=== PATIENT | female | born 1990 | race Caucasian/White ===

== ENCOUNTER 2017-09-04 14:54 | Inpatient (IN) | payer OTHER ==
[2017-09-04 15:29] VITALS: BMI 19.5
--- NOTE | 2017-09-04 20:09 | HP ---
COWS - Scale Resting Pulse: 1= [place] 81-100 Sweatin=Flushed/Facial Moisture Restless Observation: 5= Unable to Sit Still Pupil Size: 0= Normal to Room Light Bone or Joint Aches: 4=Acute Joint/Muscle Pain Runny Nose/ Eye Tearin= Runny Nose/Eyes GI Upset > 30mins: 3= Vomiting/Diarrhea Tremor Observation: 2= Slight Tremor Visible Yawning Observation: 1= 1-2x During Session Anxiety or Irritability: 2=Irritable/Anxious Goose Flesh Skin: 0=Smooth Skin COWS Score: 22 CIWA Score - CIWA Score Nausea/Vomitin Muscle Tremors: 3 Anxiety: 4-Mod. Anxious/Guarded Agitation: 4-Moderately Restless Paroxysmal Sweats: 3 Orientation: 3-Disoriented Date>2 days Tacttile Disturbances: 3-Moderate Itch/Numb/Burn Auditory Disturbances: 0-None Visual Disturbances: 0-None Headache: 0-None Present CIWA-Ar Total Score: 22 Admission ROS S - HPI Chief Complaint: C/O WITHDRAWAL SX'S. SEEKING DETOX TXMENT Allergies/Adverse Reactions: Allergies Allergy/AdvReac Type Severity Reaction Status Date / Time No Known Allergies Allergy Verified 09/04/17 20:05 History of Present Illness: 27 Y.O FEMALE WITH A LONG HX/O POLYSUBSTANCE ABUSE HERE FOR DETOX FROM HEROIN, CRACK/COCAINE, XANAX. CLIENT REPORTS THIS IS HER FIRST INPATIENT TXMENT. SELF REFERRED. DENIES LEGALS. LONGEST CLEAN TIME 3 YEARS SELF SUSTAINED. DENIES PREVIOUS HX/O OVERDOSE, SI/HI, AVH. Exam Limitations: No Limitations - Ebola screening Have you traveled outside of the country in the last 21 days: No (N) Have you had contact with anyone from an Ebola affected area: No Have you been sick,other than usual withdrawal symptoms: No Do you have a fever: No - Review of Systems Constitutional: Chills, Loss of Appetite, Malaise, Night Sweats, Changes in sleep, Unintentional Wgt. Loss EENT: reports: Nose Congestion (RUNNY NOSE), Dental Problems (DENTAL CARIES) Respiratory: reports: No Symptoms reported Cardiac: reports: No Symptoms Reported GI: reports: Poor Appetite, Poor Fluid Intake, Vomiting : reports: No Symptoms Reported Musculoskeletal: reports: Back Pain (CHRONIC), Neck Pain (CHRONIC) Integumentary: reports: Other (FOMICATION TO TRUNK OF BODY) Neuro: reports: No Symptoms reported Endocrine: reports: No Symptoms Reported Hematology: reports: No Symptoms Reported Psychiatric: reports: Anxious, Depressed Other Systems: Reviewed and Negative Patient History - Patient Medical History Hx Anemia: Yes Hx Asthma: No Hx Chronic Obstructive Pulmonary Disease (COPD): No Hx Cancer: No Hx Cardiac Disorders: No Hx Congestive Heart Failure: No Hx Hypertension: No Hx Hypercholesterolemia: No Hx Pacemaker: No HX Cerebrovascular Accident: No Hx Seizures: No Hx Dementia: No Hx Diabetes: No Hx Gastrointestinal Disorders: No Hx Liver Disease: No Hx Genitourinary Disorders: No Hx Sexually Transmitted Disorders: No Hx Renal Disease (ESRD): No Hx Thyroid Disease: No Hx Human Immunodeficiency Virus (HIV): No Hx Hepatitis C: No Hx Depression: Yes Hx Suicide Attempt: No Hx Bipolar Disorder: No Hx Schizophrenia: No Other Medical History: ANXIETY, ADHD, PTSD - Patient Surgical History Past Surgical History: No - PPD History Previous Implant?: Yes Documented Results: Negative w/o proof Implanted On Prior [facility] Admission?: No PPD to be Administered?: Yes - Reproductive History Patient is a Female of Child Bearing Age (11 -55 yrs old): Yes LMP comment: LMP OVER A YEAR AGO DUE TO DRUG USE Patient : No (NEG [facility] [place]) - Smoking Cessation Smoking history: Current every day smoker Have you smoked in the past 12 months: Yes Aproximately how many cigarettes per day: 20 Cigars Per Day: 0 Hx Chewing Tobacco Use: No Initiated information on smoking cessation: Yes 'Breaking Loose' booklet given: 09/04/17 - Substance & Tx. History Hx Alcohol Use: No Hx Substance Use: Yes Substance Use Type: Cocaine, Heroin, Tranquilizers (XANAX) Hx Substance Use Treatment: Yes (OUTPATIENT- [facility]) - Substances Abused Alprazolam (Xanax) Route: Oral Frequency: Daily Amount used: 1MG Age of first use: 18 Date of Last Use: 09/04/17 Cocaine Route: Injection Frequency: 1-2 times per week Amount used: 1 GRAM Age of first use: 16 Date of Last Use: 09/04/17 Crack Route: Smoking Frequency: Daily Amount used: 1 GRAM Age of first use: 16 Date of Last Use: 09/04/17 HEROIN Route: Injection Frequency: Daily Amount used: 20 BAGS Age of first use: 23 Date of Last Use: 09/04/17 Family Disease History - Family Disease History Family Disease History: Other: Father (ALCOHOLIC), Mother (RECOVERING ADDICT) Admission Physical Exam [facility] - Vital Signs Vital Signs: Vital Signs - 24 hr 09/04/17 15:22 Temperature 97.4 F L Pulse Rate 85 Respiratory 18 Rate Blood Pressure 113/75 - Physical General Appearance: Yes: Appropriately Dressed, Mild Distress, Irritable, Anxious HEENTM: Yes: EOMI, Normocephalic, Normal Voice, PATO, Pharynx Normal Respiratory: Yes: Chest Non-Tender, Lungs Clear, Normal Breath Sounds, No Respiratory Distress, No Accessory Muscle Use Neck: Yes: No masses,lesions,Nodules, Supple, Trachea in good position Breast: Yes: Breast Exam Deferred Cardiology: Yes: Regular Rhythm, Regular Rate, S1, S2 Abdominal: Yes: Normal Bowel Sounds, Flat, Soft, Tenderness (LLQ) Genitourinary: Yes: Within Normal Limits Back: Yes: Normal Inspection Musculoskeletal: Yes: full range of Motion, Gait Steady Extremities: Yes: Normal Capillary Refill, Normal Range of Motion, Non-Tender, Tremors (FELT) Neurological: Yes: Alert, Motor Strength 5/5, Confused (ABOUT DATE) Integumentary: Yes: Normal Color, Dry, Warm, Track Patricio (BUE), Other ( FORMICATION AND SCARRING NOTED TO TRUNK OF BODY) Lymphatic: Yes: Within Normal Limits Cleared for Admission [facility] - Detox or Rehab [facility] Level of Care: Medically Managed Detox Regimen/Protocol: Methadone/Valium Claeared for Rehab Admission: No [facility] Breath Alcohol Content Breath Alcohol Content: 0 Urine Pregancy Test - Result Urine Test Results: Negative- NO Line Present Urine Drug Screen - Results Drug Screen Negative: No Urine Drug Screen Results: DANA-Cocaine, OPI-Opiates, BZO-Benzodiazepines, OXY- Oxycodone
[2017-09-04] MEDS ORDERED: guaiFENesin/D-METHORPHAN HB 10 ML UNIT-DOSE CUPS PO PRN (20:30)
[2017-09-04] MEDS ORDERED: MAGNESIUM HYDROX 2400MG/30ML ORAL SUSPENSION 30 ML CUP PO PRN (20:30)
[2017-09-04] MEDS ORDERED: METHADONE HCL 10 MG TABLET (FOR DETOX USE ONLY) PO ONE ×2 (20:30→23:00)
[2017-09-04] MEDS ORDERED: LOPERAMIDE HCL 2 MG CAPSULE PO PRN (20:30)
[2017-09-04] MEDS ORDERED: P-EPHED 60MG/TRIPROLIDI 2.5MG TABLET PO PRN (20:30)
[2017-09-04] MEDS ORDERED: MENTHOL/PHENOL 1 EACH UD MM PRN (20:30)
[2017-09-04] MEDS ORDERED: ACETAMINOPHEN 325 MG TABLET (FP) PO PRN (20:30)
[2017-09-04] MEDS ORDERED: MAG HYDROX/AL HYDROX/SIMETH 30 ML UNIT-DOSE CUP PO PRN (20:30)
[2017-09-04] MEDS ORDERED: MAGNESIUM CITRATE 300 ML BOTTLE PO PRN (20:30)
[2017-09-04] MEDS ORDERED: diazePAM 5 MG TABLET PO ONE (20:45)
[2017-09-04] MEDS: diazePAM 5 MG TABLET PO SCH (22:42)
[2017-09-04] MEDS: THIAMINE HCL 100 MG TABLET (FP) PO SCH (22:42)
[2017-09-04 23:23] LABS: URINE APPEARANCE SLCLOUDY; URINE BILIRUBIN NEGATIVE (<2.0 mg/dL); URINE COLOR LTYELLOW; URINE GLUCOSE (UA) NEGATIVE (NEGATIVE); URINE KETONE NEGATIVE (NEGATIVE); URINE LEUK ESTERASE TRACE (NEGATIVE); URINE NITRITE NEGATIVE (NEGATIVE); URINE PROTEIN NEGATIVE (NEGATIVE); URINE UROBILINOGEN NEGATIVE mg/dL (0.2-1.0)
[2017-09-04 23:31] LABS: EPI CELLS FEW /HPF (FEW); URINE BACTERIA FEW /hpf (NONE SEEN); URINE MUCUS RARE
[2017-09-05] MEDS: NICOTINE POLACRILEX 2 MG GUM BUC PRN ×4 (05:57→22:21)
[2017-09-05] MEDS: diazePAM 5 MG TABLET PO SCH ×3 (06:19→22:20)
[2017-09-05] MEDS: diazePAM 5 MG TABLET PO PRN ×2 (07:50→16:57)
--- NOTE | 2017-09-05 09:31 | CONSULT ---
[facility] Psychiatric Consult - Data Date of interview: 09/05/17 Admission source: [facility] Identifying data: This is 27 years old female, single mother of one, living with family, unemployed, with no income, with long history of Heroin, Crack/ Cocaine, Xanax, Nicotine dependence, with no psychiatric hospitalization history , reporting Opioids and Xanax withdrawal symptoms and seeking for detox. Substance Abuse History: Smoking history: Current every day smoker. Have you smoked in the past 12 months: Yes. Aproximately how many cigarettes per day: 20. Cigars Per Day: 0. Hx Chewing Tobacco Use: No. Initiated information on smoking cessation: Yes. 'Breaking Loose' booklet given: 09/04/17. - Substance & Tx. History. Hx Alcohol Use: No. Hx Substance Use: Yes. Substance Use Type : Cocaine, Heroin, Tranquilizers (XANAX). Hx Substance Use Treatment: Yes ( OUTPATIENT- [facility]). - Substances Abused. Alprazolam ( Xanax). Route: Oral. Frequency: Daily. Amount used: 1MG. Age of first use: 18. Date of Last Use: 09/04/17. Cocaine. Route: Injection. Frequency: 1- 2 times per week. Amount used: 1 GRAM. Age of first use: 16. Date of Last Use : 09/04/17. Crack. Route: Smoking. Frequency: Daily. Amount used: 1 GRAM. Age of first use: 16. Date of Last Use: 09/04/17. HEROIN. Route: Injection. Frequency: Daily. Amount used: 20 BAGS. Age of first use: 23. Date of Last Use: 09/04/17 Medical History: Denies Psychiatric History: Patient reports anxiety and depression due to legal issues- ( CPS case is open). Denies suicidal, homicidal ideation and history, reports no medications taking prior to admission Physical/Sexual Abuse/Trauma History: Denies Additional Comment: Observation. Detox Unit Care Protocol Mental Status Exam - Mental Status Exam Alert and Oriented to: Person Cognitive Function: Fair Patient Appearance: Unkempt Mood: Anxious Affect: Mood Congruent Patient Behavior: Talkative, Cooperative Speech Pattern: Appropriate Voice Loudness: Mildly Soft/Quiet Thought Process: Goal Oriented Thought Disorder: Being Controlled Hallucinations: Denies Suicidal Ideation: Denies Homicidal Ideation: Denies Insight/Judgement: Fair Sleep: Difficulty falling asleep Appetite: Fair Muscle strength/Tone: Normal Gait/Station: Normal Additional Comments: Observation. Detox Unit Care Protocol Psychiatric Findings - Problem List ([place] 1, 2,3) (1) Benzodiazepine withdrawal without complication Current Visit: Yes Status: Acute (2) Nicotine dependence Current Visit: Yes Status: Acute Qualifiers: Nicotine product type: cigarettes Substance use status: uncomplicated Qualified Code(s): F17.210 - Nicotine dependence, cigarettes, uncomplicated (3) Opioid dependence with withdrawal Current Visit: Yes Status: Acute (4) Cocaine dependence, uncomplicated Current Visit: Yes Status: Chronic (5) Substance induced mood disorder Current Visit: Yes Status: Suspected - Initial Treatment Plan Initial Treatment Plan: Observation. Detox Unit Care Protocol
[2017-09-05 09:49] LABS: HEMATOCRIT 37.9 % (32.4-45.2); HEMOGLOBIN 12.8 GM/dL (10.7-15.3); MCH 29.4 pg (25.7-33.7); MCHC 33.9 g/dl (32.0-36.0); MEAN CELL VOLUME 86.9 fl (80-96); MEAN PLT VOLUME 8.4 fl (7.5-11.1); PLATELET COUNT 239 K/MM3 (134-434); RBC 4.36 M/mm3 (3.60-5.2); WHITE BLOOD COUNT 5.4 K/mm3 (4.0-10.0)
[2017-09-05] MEDS ORDERED: METHADONE HCL 10 MG TABLET (FOR DETOX USE ONLY) PO SCH (10:00)
[2017-09-05] MEDS: PRENATAL VITAMINS W/ FOLIC ACID TABLET (FP) PO SCH (10:13)
[2017-09-05] MEDS: hydrOXYzine PAMOATE 50 MG CAPSULE (FP) PO PRN ×2 (10:13→20:11)
[2017-09-05] MEDS: NICOTINE 21 MG/24 HOURS TOPICAL PATCH TD SCH (10:14)
--- NOTE | 2017-09-05 10:17 | PN ---
[facility] CIWA - CIWA Score Nausea/Vomitin-Mild Nausea/No Vomiting Muscle Tremors: 4-Moderate,w/Arms Extend Anxiety: 4-Mod. Anxious/Guarded Agitation: 4-Moderately Restless Paroxysmal Sweats: 1-Minimal Palms Moist Orientation: 1-Uncertain about Date Tacttile Disturbances: 2-Mild Itch/Numbness/Burn Auditory Disturbances: 0-None Visual Disturbances: 0-None Headache: 1-Very Mild CIWA-Ar Total Score: 18 [facility] COWS - Scale Resting Pulse: 1= [place] 81-100 Sweatin= Chills/Flushing Restless Observation: 1= Difficult to Sit Still Pupil Size: 0= Normal to Room Light Bone or Joint Aches: 2= Severe Diffuse Aches Runny Nose/ Eye Tearin= Runny Nose/Eyes GI Upset > 30mins: 2= Nausea/Diarrhea Tremor Observation of Outstretched Hands: 2= Slight Tremor Visible Yawning Observation: 2= >3x During Session Anxiety or Irritability: 2=Irritable/Anxious Goose Flesh Skin: 3=Piloerection COWS Score: 18 S Progress Note (SOAP) Subjective: body pain sweat tremor restlessness irritable anxiety Objective: 09/05/17 10:15 Vital Signs Temperature 97.7 F 09/05/17 08:07 Pulse Rate 98 H 09/05/17 08:07 Respiratory Rate 20 09/05/17 08:07 Blood Pressure 129/62 09/05/17 08:07 O2 Sat by Pulse Oximetry (%) Laboratory Last Values WBC 5.4 K/mm3 (4.0-10.0) 09/05/17 07:00 RBC 4.36 M/mm3 (3.60-5.2) 09/05/17 07:00 Hgb 12.8 GM/dL (10.7-15.3) 09/05/17 07:00 Hct 37.9 % (32.4-45.2) 09/05/17 07:00 MCV 86.9 fl (80-96) 09/05/17 07:00 MCH 29.4 pg (25.7-33.7) 09/05/17 07:00 MCHC 33.9 g/dl (32.0-36.0) 09/05/17 07:00 RDW 14.0 % (11.6-15.6) 09/05/17 07:00 Plt Count 239 K/MM3 (134-434) 09/05/17 07:00 MPV 8.4 fl (7.5-11.1) 09/05/17 07:00 Urine Color Ltyellow 09/04/17 20:44 Urine Appearance Slcloudy 09/04/17 20:44 Urine pH 8.0 (5.0-8.0) 09/04/17 20:44 Ur Specific [place] 1.008 (1.001-1.035) 09/04/17 20:44 Urine Protein Negative (NEGATIVE) 09/04/17 20:44 Urine Glucose (UA) Negative (NEGATIVE) 09/04/17 20:44 Urine Ketones Negative (NEGATIVE) 09/04/17 20:44 Urine Blood Negative (NEGATIVE) 09/04/17 20:44 Urine Nitrite Negative (NEGATIVE) 09/04/17 20:44 Urine Bilirubin Negative (<2.0 mg/dL) 09/04/17 20:44 Urine Urobilinogen Negative mg/dL (0.2-1.0) 09/04/17 20:44 Ur Leukocyte Esterase Trace (NEGATIVE) 09/04/17 20:44 Urine WBC (Auto) 4 /hpf (3-5) 09/04/17 20:44 Urine RBC (Auto) <1 /hpf (0-3) 09/04/17 20:44 Ur Epithelial Cells Few /HPF (FEW) 09/04/17 20:44 Urine Bacteria Few /hpf (NONE SEEN) 09/04/17 20:44 Urine Mucus Rare 09/04/17 20:44 lab noted repeat ua Assessment: 09/05/17 10:16 withdrawal sx Plan: continue detox repeat ua increase oral fluid personal hygiene
[2017-09-05 10:28] LABS: CHLORIDE 108 mmol/L (98-107); POTASSIUM 4.2 mmol/L (3.5-5.1); SODIUM 141 mmol/L (136-145)
[2017-09-05 10:41] LABS: ALBUMIN 3.4 g/dl (3.4-5.0); ALK PHOS 59 U/L (45-117); ANION GAP 6 (8-16); BILIRUBIN,TOTAL 0.2 mg/dL (0.2-1.0); BLOOD UREA NITROGEN 11 mg/dL (7-18); CALCIUM 8.8 mg/dL (8.5-10.1); CO2 27 mmol/L (21-32); CREATININE 0.8 mg/dL (0.55-1.02); GLUCOSE,RANDOM 83 mg/dL (74-106); SGOT/AST 11 U/L (15-37); SGPT/ALT 17 U/L (12-78); TOT PROT 6.5 g/dl (6.4-8.2)
--- NOTE | 2017-09-05 13:34 | EKG ---
Test Reason : Blood Pressure : / mmHG Vent. Rate : 097 BPM Atrial Rate : 097 BPM P-R Int : 114 ms QRS Dur : 082 ms QT Int : 368 ms P-R-T Axes : 077 080 061 degrees QTc Int : 467 ms NORMAL SINUS RHYTHM POSSIBLE LEFT ATRIAL ENLARGEMENT BORDERLINE ECG NO PREVIOUS ECGS AVAILABLE Confirmed by AVTAR WILEY MD ([id number]) on 09/05/2017 1:33:40 PM Referred By: Confirmed By:AVTAR WILEY MD
[2017-09-05] MEDS: THIAMINE HCL 100 MG TABLET (FP) PO SCH (22:19)
[2017-09-06] MEDS: NICOTINE POLACRILEX 2 MG GUM BUC PRN ×5 (00:44→22:15)
[2017-09-06] MEDS: diazePAM 5 MG TABLET PO PRN ×3 (00:44→17:13)
[2017-09-06] MEDS: MELATONIN 5 MG TABLETS PO PRN (00:45)
[2017-09-06] MEDS: hydrOXYzine PAMOATE 50 MG CAPSULE (FP) PO PRN ×2 (03:47→22:14)
[2017-09-06] MEDS: IBUPROFEN 400 MG TABLET (FP) PO PRN (03:47)
[2017-09-06] MEDS ORDERED: BACLOFEN 10 MG TABLET (FP) PO PRN (09:48)
--- NOTE | 2017-09-06 09:54 | PN ---
[facility] CIWA - CIWA Score Nausea/Vomitin-Mild Nausea/No Vomiting Muscle Tremors: 4-Moderate,w/Arms Extend Anxiety: 4-Mod. Anxious/Guarded Agitation: 4-Moderately Restless Paroxysmal Sweats: 1-Minimal Palms Moist Orientation: 0-Oriented Tacttile Disturbances: 1-Very Mild Itch/Numbness Auditory Disturbances: 0-None Visual Disturbances: 0-None Headache: 0-None Present CIWA-Ar Total Score: 15 S COWS - Scale Resting Pulse: 0= [place] 80 or Below Sweatin= Chills/Flushing Restless Observation: 1= Difficult to Sit Still Pupil Size: 0= Normal to Room Light Bone or Joint Aches: 2= Severe Diffuse Aches Runny Nose/ Eye Tearin= Nasal Congestion GI Upset > 30mins: 2= Nausea/Diarrhea Tremor Observation of Outstretched Hands: 2= Slight Tremor Visible Yawning Observation: 1= 1-2x During Session Anxiety or Irritability: 2=Irritable/Anxious Goose Flesh Skin: 3=Piloerection COWS Score: 15 [facility] Progress Note (SOAP) Subjective: sweat body pain tremor restlessness gi distress trouble sleep at night muscle cramping Objective: 09/06/17 09:52 Vital Signs Temperature 97.5 F L 09/06/17 09:19 Pulse Rate 64 09/06/17 09:19 Respiratory Rate 16 09/06/17 09:19 Blood Pressure 101/55 09/06/17 09:19 O2 Sat by Pulse Oximetry (%) Laboratory Last Values WBC 5.4 K/mm3 (4.0-10.0) 09/05/17 07:00 RBC 4.36 M/mm3 (3.60-5.2) 09/05/17 07:00 Hgb 12.8 GM/dL (10.7-15.3) 09/05/17 07:00 Hct 37.9 % (32.4-45.2) 09/05/17 07:00 MCV 86.9 fl (80-96) 09/05/17 07:00 MCH 29.4 pg (25.7-33.7) 09/05/17 07:00 MCHC 33.9 g/dl (32.0-36.0) 09/05/17 07:00 RDW 14.0 % (11.6-15.6) 09/05/17 07:00 Plt Count 239 K/MM3 (134-434) 09/05/17 07:00 MPV 8.4 fl (7.5-11.1) 09/05/17 07:00 Sodium 141 mmol/L (136-145) 09/05/17 07:00 Potassium 4.2 mmol/L (3.5-5.1) 09/05/17 07:00 Chloride 108 mmol/L (98-107) H 09/05/17 07:00 Carbon Dioxide 27 mmol/L (21-32) 09/05/17 07:00 Anion Gap 6 (8-16) L 09/05/17 07:00 BUN 11 mg/dL (7-18) 09/05/17 07:00 Creatinine 0.8 mg/dL (0.55-1.02) 09/05/17 07:00 Creat Clearance w eGFR > 60 (>60) 09/05/17 07:00 Random Glucose 83 mg/dL (74-106) 09/05/17 07:00 Calcium 8.8 mg/dL (8.5-10.1) 09/05/17 07:00 Total Bilirubin 0.2 mg/dL (0.2-1.0) 09/05/17 07:00 AST 11 U/L (15-37) L 09/05/17 07:00 ALT 17 U/L (12-78) 09/05/17 07:00 Alkaline Phosphatase 59 U/L (45-117) 09/05/17 07:00 Total Protein 6.5 g/dl (6.4-8.2) 09/05/17 07:00 Albumin 3.4 g/dl (3.4-5.0) 09/05/17 07:00 Urine Color Ltyellow 09/04/17 20:44 Urine Appearance Slcloudy 09/04/17 20:44 Urine pH 8.0 (5.0-8.0) 09/04/17 20:44 Ur Specific [place] 1.008 (1.001-1.035) 09/04/17 20:44 Urine Protein Negative (NEGATIVE) 09/04/17 20:44 Urine Glucose (UA) Negative (NEGATIVE) 09/04/17 20:44 Urine Ketones Negative (NEGATIVE) 09/04/17 20:44 Urine Blood Negative (NEGATIVE) 09/04/17 20:44 Urine Nitrite Negative (NEGATIVE) 09/04/17 20:44 Urine Bilirubin Negative (<2.0 mg/dL) 09/04/17 20:44 Urine Urobilinogen Negative mg/dL (0.2-1.0) 09/04/17 20:44 Ur Leukocyte Esterase Trace (NEGATIVE) 09/04/17 20:44 Urine WBC (Auto) 4 /hpf (3-5) 09/04/17 20:44 Urine RBC (Auto) <1 /hpf (0-3) 09/04/17 20:44 Ur Epithelial Cells Few /HPF (FEW) 09/04/17 20:44 Urine Bacteria Few /hpf (NONE SEEN) 09/04/17 20:44 Urine Mucus Rare 09/04/17 20:44 RPR Titer Nonreactive (NONREACTIVE) 09/05/17 07:00 lab noted repeat ua pending 09/06/17 09:52 Assessment: 09/06/17 09:53 withdrawal sx Plan: continue detox ua pending psy consultation for anxiety baclofen prn for muscle cramping
[2017-09-06] MEDS: diazePAM 5 MG TABLET PO SCH ×2 (10:39→22:14)
[2017-09-06] MEDS: PRENATAL VITAMINS W/ FOLIC ACID TABLET (FP) PO SCH (10:39)
[2017-09-06] MEDS: METHADONE HCL 5 MG TABLET (FOR DETOX USE ONLY) PO SCH (10:39)
[2017-09-06] MEDS: NICOTINE 21 MG/24 HOURS TOPICAL PATCH TD SCH (10:39)
[2017-09-06 15:50] LABS: URINE APPEARANCE SLCLOUDY; URINE BILIRUBIN NEGATIVE (<2.0 mg/dL); URINE COLOR LTYELLOW; URINE GLUCOSE (UA) NEGATIVE (NEGATIVE); URINE KETONE NEGATIVE (NEGATIVE); URINE LEUK ESTERASE NEGATIVE (NEGATIVE); URINE NITRITE NEGATIVE (NEGATIVE); URINE PROTEIN NEGATIVE (NEGATIVE); URINE UROBILINOGEN NEGATIVE mg/dL (0.2-1.0)
[2017-09-06] MEDS: THIAMINE HCL 100 MG TABLET (FP) PO SCH (22:14)
[2017-09-07] MEDS: MELATONIN 5 MG TABLETS PO PRN (00:26)
[2017-09-07] MEDS: NICOTINE POLACRILEX 2 MG GUM BUC PRN (00:26)
[2017-09-07] MEDS: diazePAM 5 MG TABLET PO PRN ×2 (00:30→12:34)
[2017-09-07] MEDS: IBUPROFEN 400 MG TABLET (FP) PO PRN (01:53)
[2017-09-07] MEDS: hydrOXYzine PAMOATE 50 MG CAPSULE (FP) PO PRN (02:54)
[2017-09-07] MEDS: NICOTINE POLACRILEX 4 MG GUM BUC PRN ×2 (09:41→12:29)
--- NOTE | 2017-09-07 09:44 | PN ---
[facility] Progress Note (SOAP) Subjective: joints pain sweat tremor restlessness agitative anxiety trouble sleep at night Objective: 09/07/17 09:43 Vital Signs Temperature 97.2 F L 09/07/17 09:21 Pulse Rate 63 09/07/17 09:21 Respiratory Rate 18 09/07/17 09:21 Blood Pressure 107/65 09/07/17 09:42 O2 Sat by Pulse Oximetry (%) Laboratory Last Values WBC 5.4 K/mm3 (4.0-10.0) 09/05/17 07:00 RBC 4.36 M/mm3 (3.60-5.2) 09/05/17 07:00 Hgb 12.8 GM/dL (10.7-15.3) 09/05/17 07:00 Hct 37.9 % (32.4-45.2) 09/05/17 07:00 MCV 86.9 fl (80-96) 09/05/17 07:00 MCH 29.4 pg (25.7-33.7) 09/05/17 07:00 MCHC 33.9 g/dl (32.0-36.0) 09/05/17 07:00 RDW 14.0 % (11.6-15.6) 09/05/17 07:00 Plt Count 239 K/MM3 (134-434) 09/05/17 07:00 MPV 8.4 fl (7.5-11.1) 09/05/17 07:00 Sodium 141 mmol/L (136-145) 09/05/17 07:00 Potassium 4.2 mmol/L (3.5-5.1) 09/05/17 07:00 Chloride 108 mmol/L (98-107) H 09/05/17 07:00 Carbon Dioxide 27 mmol/L (21-32) 09/05/17 07:00 Anion Gap 6 (8-16) L 09/05/17 07:00 BUN 11 mg/dL (7-18) 09/05/17 07:00 Creatinine 0.8 mg/dL (0.55-1.02) 09/05/17 07:00 Creat Clearance w eGFR > 60 (>60) 09/05/17 07:00 Random Glucose 83 mg/dL (74-106) 09/05/17 07:00 Calcium 8.8 mg/dL (8.5-10.1) 09/05/17 07:00 Total Bilirubin 0.2 mg/dL (0.2-1.0) 09/05/17 07:00 AST 11 U/L (15-37) L 09/05/17 07:00 ALT 17 U/L (12-78) 09/05/17 07:00 Alkaline Phosphatase 59 U/L (45-117) 09/05/17 07:00 Total Protein 6.5 g/dl (6.4-8.2) 09/05/17 07:00 Albumin 3.4 g/dl (3.4-5.0) 09/05/17 07:00 Urine Color Ltyellow 09/06/17 11:30 Urine Appearance Slcloudy 09/06/17 11:30 Urine pH 7.0 (5.0-8.0) 09/06/17 11:30 Ur Specific [place] 1.011 (1.001-1.035) 09/06/17 11:30 Urine Protein Negative (NEGATIVE) 09/06/17 11:30 Urine Glucose (UA) Negative (NEGATIVE) 09/06/17 11:30 Urine Ketones Negative (NEGATIVE) 09/06/17 11:30 Urine Blood Negative (NEGATIVE) 09/06/17 11:30 Urine Nitrite Negative (NEGATIVE) 09/06/17 11:30 Urine Bilirubin Negative (<2.0 mg/dL) 09/06/17 11:30 Urine Urobilinogen Negative mg/dL (0.2-1.0) 09/06/17 11:30 Ur Leukocyte Esterase Negative (NEGATIVE) 09/06/17 11:30 Urine WBC (Auto) 4 /hpf (3-5) 09/04/17 20:44 Urine RBC (Auto) <1 /hpf (0-3) 09/04/17 20:44 Ur Epithelial Cells Few /HPF (FEW) 09/04/17 20:44 Urine Bacteria Few /hpf (NONE SEEN) 09/04/17 20:44 Urine Mucus Rare 09/04/17 20:44 RPR Titer Nonreactive (NONREACTIVE) 09/05/17 07:00 lab noted Assessment: 09/07/17 09:43 withdrawal sx Plan: continue detox
[2017-09-07] MEDS: PRENATAL VITAMINS W/ FOLIC ACID TABLET (FP) PO SCH (10:14)
[2017-09-07] MEDS: NICOTINE 21 MG/24 HOURS TOPICAL PATCH TD SCH (10:15)
[2017-09-07] MEDS: METHADONE HCL 5 MG TABLET (FOR DETOX USE ONLY) PO SCH (10:15)
[2017-09-07] MEDS: diazePAM 5 MG TABLET PO SCH (10:15)
[2017-09-07] MEDS: BACITRACIN 0.9 GM PACKET TP SCH ×2 (10:15→14:17)
[2017-09-07 15:41] VITALS: BP 108/62; PULSE 76; TEMP 97.3
--- NOTE | 2017-09-07 15:58 | DS ---
[facility] Detox Discharge Summary Admission Date: 09/04/17 Discharge Date: 09/07/17 - History Present History: Opioid Dependence, Sedative Dependence Additional Comments: 27 years old female admitted on 09/04/17 for benzo and opiate withdrawal sx insists to terminate the alcohol and opiate detox regimen due to appointment was made for methadone maintenance program at 6 am on 09/08/17 also a friend is waiting at the entrance labby transport the patient to home today patient is alert oriented x 3 optimistic about the metnadone maintenance program to help her remain sober from alcohol and opiate as well as discuss attending community self help groups for support - Physical Exam Results Vital Signs: Vital Signs Temperature 97.3 F L 09/07/17 15:40 Pulse Rate 76 09/07/17 15:40 Respiratory Rate 20 09/07/17 15:40 Blood Pressure 108/62 09/07/17 15:40 O2 Sat by Pulse Oximetry (%) Pertinent Admission Physical Exam Findings: benzo and opiate withdrawal sx Vital Signs Temperature 97.3 F L 09/07/17 15:40 Pulse Rate 76 09/07/17 15:40 Respiratory Rate 20 09/07/17 15:40 Blood Pressure 108/62 09/07/17 15:40 O2 Sat by Pulse Oximetry (%) Laboratory Last Values WBC 5.4 K/mm3 (4.0-10.0) 09/05/17 07:00 RBC 4.36 M/mm3 (3.60-5.2) 09/05/17 07:00 Hgb 12.8 GM/dL (10.7-15.3) 09/05/17 07:00 Hct 37.9 % (32.4-45.2) 09/05/17 07:00 MCV 86.9 fl (80-96) 09/05/17 07:00 MCH 29.4 pg (25.7-33.7) 09/05/17 07:00 MCHC 33.9 g/dl (32.0-36.0) 09/05/17 07:00 RDW 14.0 % (11.6-15.6) 09/05/17 07:00 Plt Count 239 K/MM3 (134-434) 09/05/17 07:00 MPV 8.4 fl (7.5-11.1) 09/05/17 07:00 Sodium 141 mmol/L (136-145) 09/05/17 07:00 Potassium 4.2 mmol/L (3.5-5.1) 09/05/17 07:00 Chloride 108 mmol/L (98-107) H 09/05/17 07:00 Carbon Dioxide 27 mmol/L (21-32) 09/05/17 07:00 Anion Gap 6 (8-16) L 09/05/17 07:00 BUN 11 mg/dL (7-18) 09/05/17 07:00 Creatinine 0.8 mg/dL (0.55-1.02) 09/05/17 07:00 Creat Clearance w eGFR > 60 (>60) 09/05/17 07:00 Random Glucose 83 mg/dL (74-106) 09/05/17 07:00 Calcium 8.8 mg/dL (8.5-10.1) 09/05/17 07:00 Total Bilirubin 0.2 mg/dL (0.2-1.0) 09/05/17 07:00 AST 11 U/L (15-37) L 09/05/17 07:00 ALT 17 U/L (12-78) 09/05/17 07:00 Alkaline Phosphatase 59 U/L (45-117) 09/05/17 07:00 Total Protein 6.5 g/dl (6.4-8.2) 09/05/17 07:00 Albumin 3.4 g/dl (3.4-5.0) 09/05/17 07:00 Urine Color Ltyellow 09/06/17 11:30 Urine Appearance Slcloudy 09/06/17 11:30 Urine pH 7.0 (5.0-8.0) 09/06/17 11:30 Ur Specific [place] 1.011 (1.001-1.035) 09/06/17 11:30 Urine Protein Negative (NEGATIVE) 09/06/17 11:30 Urine Glucose (UA) Negative (NEGATIVE) 09/06/17 11:30 Urine Ketones Negative (NEGATIVE) 09/06/17 11:30 Urine Blood Negative (NEGATIVE) 09/06/17 11:30 Urine Nitrite Negative (NEGATIVE) 09/06/17 11:30 Urine Bilirubin Negative (<2.0 mg/dL) 09/06/17 11:30 Urine Urobilinogen Negative mg/dL (0.2-1.0) 09/06/17 11:30 Ur Leukocyte Esterase Negative (NEGATIVE) 09/06/17 11:30 Urine WBC (Auto) 4 /hpf (3-5) 09/04/17 20:44 Urine RBC (Auto) <1 /hpf (0-3) 09/04/17 20:44 Ur Epithelial Cells Few /HPF (FEW) 09/04/17 20:44 Urine Bacteria Few /hpf (NONE SEEN) 09/04/17 20:44 Urine Mucus Rare 09/04/17 20:44 RPR Titer Nonreactive (NONREACTIVE) 09/05/17 07:00 lab noted - Treatment Hospital Course: Detox Protocol Followed, Responded well Patient has Accepted a Rehab Referral to: methadone maintenance program - Medication Discharge Medications: Ambulatory Orders NK [No Known Home Medication] 09/04/17 - Diagnosis (1) Benzodiazepine withdrawal without complication Status: Acute (2) Nicotine dependence Status: Acute Qualifiers: Nicotine product type: cigarettes Substance use status: in withdrawal Qualified Code(s): F17.213 - Nicotine dependence, cigarettes, with withdrawal (3) Opioid dependence with withdrawal Status: Acute - AMA Did Patient Leave Against Medical Advice: Yes
[2017-09-08] MEDS ORDERED: diazePAM 5 MG TABLET PO SCH (10:00)
[2017-09-08] MEDS ORDERED: METHADONE HCL 10 MG TABLET (FOR DETOX USE ONLY) PO SCH (10:00)
[2017-09-09] MEDS ORDERED: METHADONE HCL 5 MG TABLET (FOR DETOX USE ONLY) PO SCH (06:00)
== END 2017-09-07 15:42 | disposition left against medical advice (07) | DRG 770 ==
LOC: YASAS 14:54 → Y6N 20:28
PROVIDERS: ADMIT Surgery; ATTEND Surgery
PROC: HZ2ZZZZ Detoxification Services for Substance Abuse Treatment (ICD-10-PCS; principal; 2017-09-04)
DX: F11.23 Opioid dependence with withdrawal (principal); F13.230 Sedative, hypnotic or anxiolytic dependence with withdrawal, uncomplicated; F14.20 Cocaine dependence, uncomplicated; F17.213 Nicotine dependence, cigarettes, with withdrawal; F19.24 Other psychoactive substance dependence with psychoactive substance-induced mood disorder
CPT/HCPCS: 36415; 80053; 81003; 81015; 85027; 86593; 93005; 93010; J0475